=== PATIENT | female | born 1990 | race Caucasian/White ===

== ENCOUNTER 2019-02-16 10:34 | Emergency (ER) | payer OTHER ==
--- OUTSIDE RECORDS SUMMARY | 2019-02-16 10:41 | XMS REPORT | Continuity of Care Document ---
:1990 External Reference #:[id number] Author Name Orquidea Garcia M.D. Address [address] [facility] [place] [address] Care Team Providers Name Role Phone Orquidea Garcia M.D. 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 Onset: 2016 Social History Type Date Description Comments Sex Unknown Tobacco Use Start: Unknown Never Smoked Cigarettes ETOH Use Occasional 1-2 2-3x week Exercise Type/Frequency Exercises regularly cardio 3x week Allergies, Adverse Reactions, Alerts Description No Known Drug Allergies Medications Active Medications SIG Qnty Indications Ordering Provider Date Lorazepam take 1/2 - 1 14tabs F40.243 Orquidea Garcia, 02/05/2019 0.5mg Tablets tablet by mouth M.D. up to twice daily as needed for anxiety Sprintec 28 1 by mouth every Unknown day 0.25-35mg-mcg Tablets Medications Administered in Office Medication SIG Qnty Indications Ordering Provider Date Brief Emotional/Behav SEAN Sanchez 07/11/2017 Assessment W/ Scoring Doc Per Standard Inst Injection Immunizations CPT Code Status Date Vaccine Lot # [id number] Given 02/05/2019 Influenza Vac, Quadrivalent, Slit Virus, Im [id number] Given 03/02/2018 Influenza Vac, Quadrivalent, Slit Virus, Im Vital Signs Date Vital Result Comment 02/05/2019 1:28pm BP Systolic 120 mmHg BP Diastolic 60 mmHg Heart Rate 80 /min Body Temperature 98.6 F Respiratory Rate 12 /min Height 67 inches 5'7" Weight 196.00 lb BMI (Body Mass Index) 30.7 kg/m2 12/20/2017 5:53pm BP Systolic 118 mmHg BP Diastolic 60 mmHg Heart Rate 78 /min Body Temperature 98.4 F Respiratory Rate 16 /min Height 67 inches 5'7" Weight 205.12 lb BMI (Body Mass Index) 32.1 kg/m2 Results Description No Information Available Procedures Description No Information Available Medical Devices Description No Information Available Encounters Description No Information Available Assessments Date Code Description Provider 02/05/2019 Z23 Encounter for immunization Orquidea Garcia M.D. 02/05/2019 F41.9 Anxiety disorder, unspecified Orquidea Garcia M.D. 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 Plan of Treatment Future Appointment(s):04/22/2019 6:00 pm - Orquidea Garcia M.D. at [id number] - Orquidea Garcia M.D.Z23 Encounter for [id number] Anxiety disorder , unspecifiedComments:discussed controlled substance, No alcohol or driving while on these medications. Controlled substances can cause physiologic dependence, withdrawal symptoms, be addictive and/or habit forming. Not safe in syjzmfqjwP57.243 Fear of flyingNew Medication:Lorazepam 0.5 mg - take 1/2 - 1 tablet by mouth up to twice daily as needed for anxietyComments:Reviewed adverse side effects of medication. Advised to call the office if experiencing symptoms. Patient verbalized understanding. if using more often will need to consider restart fluoxetineAllComments:Medication Management Patient Understands medications she's taking? Yes No Are there Barriers to Adherence? Yes No Has the patient been asked about herbal supplements and therapies, and OTC meds? Yes No Functional Status Description No Information Available Mental Status Description No Information Available Referrals Description No Information Available
[2019-02-16 10:53] VITALS: BP 109/55
--- NOTE | 2019-02-16 10:55 | UC ---
General HPI - HPI Summary HPI Summary: Pt presents requesting STD testing. Pt is sexually active- uses condoms Pt states 2 partners last year - pt staes gets tested annually - [facility]. no sx. no vaginal discharge, itching, odor no concerning sx with partners pt requesting testing for gc/ch/trich/hiv/hep/syphillis pt declined testing for herpes no h/o, no lesions, no dysuria no personal hx of STD BCP meds reviewed - History of Current Complaint Chief Complaint: UCSTDScreening Stated Complaint: PERSONAL Time Seen by Provider: 02/16/19 10:49 Hx Obtained From: Patient Hx Last Menstrual Period: 01/17/19 Current Severity: None Pain Intensity: 0 - Allergy/Home Medications Allergies/Adverse Reactions: Allergies Allergy/AdvReac Type Severity Reaction Status Date / Time No Known Allergies Allergy Verified 02/16/19 10:47 Home Medications: Home Medications Norgestimate-Ethinyl Estradiol [Norg-Ee 0.18-0.215-0.25/0.025] 1 tab PO DAILY [History Confirmed 02/16/19] PMH/Surg Hx/FS Hx/Imm Hx Previously Healthy: Yes - Surgical History Surgical History: None - Family History Known Family History: Positive: Non-Contributory - Social History Occupation: Employed Full-time Lives: With Family Alcohol Use: Weekly Substance Use Type: None Smoking Status (MU): Never Smoked Tobacco Review of Systems All Other Systems Reviewed And Are Negative: Yes Gastrointestinal: Positive: Negative Genitourinary: Positive: Negative Physical Exam - Summary Physical Exam Summary: Vital Signs Reviewed: Yes A+Ox3, no distress Eyes: Conjunctiva Clear, LEORA. EOM intact and full ENT: Hearing grossly normal TM x 2 clear, mmoist, uvula midline, no exudate, no erythema Neck: Positive: Supple Respiratory: Positive: No respiratory distress, No accessory muscle use + CTA throughout no w/r Cardiovascular: RRR nl s1, s2 no m/r CBT <2 sec abd soft + BS nt/nd no guarding, no distension Musculoskeletal Exam: ANGEL x 4 without difficulty Strength Intact, ROM Intact Neurological: Positive: Alert, + sensation throughout Psychological: Positive: Normal Response To practice nurse Skin: Positive: no rash, no ecchymosis Triage Information Reviewed: Yes Vital Signs: Initial Vital Signs Temp 98.5 F 02/16/19 10:43 Pulse 93 02/16/19 10:43 Resp 16 02/16/19 10:43 BP 89/60 02/16/19 10:43 Pulse Ox 100 02/16/19 10:43 Course/Dx - Course Course Of Treatment: Pt requesting STD testing no sx no concerns re partners uses condoms revoewed with pt tests reviewed with pt lag in results from exposure - Diagnoses Provider Diagnosis: Routine screening for STI (sexually transmitted infection) Discharge ED - Sign-Out/Discharge Documenting (check all that apply): Patient Departure All imaging exams completed and their final reports reviewed: No Studies - Discharge Plan Condition: Stable Disposition: HOME Patient Education Materials: Sexually Transmitted Diseases (ED), Safe Sex (ED) Referrals: Orquidea Garcia MD [Primary Care Provider] - Additional Instructions: As discussed - your urine and blood has been send for the following sexually transmitted infections: Gonorrhea, Chlamydia, Trichamonas, HIV, Hepatitis, Syphillis. You declined testing for herpes simplex virus. As discussed, these results may take up to 1 week to come back. You will receive a call from a care support team member if there are concerning results. As discussed, HIV and Hepatitis may take several months to become positive in your blood work - you have not indicated any know exposures or symptoms [facility], or return with questions or concerns - Billing Disposition and Condition Condition: STABLE Disposition: Home
[2019-02-16 15:54] LABS: HIV 4th Generation Nonreactive (Nonreactive)
[2019-02-16 15:58] LABS: Hepatitis B Surface Ab Not Immune (Immune); Hepatitis C Antibody Negative (Negative)
--- NOTE | 2019-02-17 07:25 | UC ---
- Progress Note Progress Note: Follow up screening for STI's. Please notify that she is hep C andd HIV negative, but does not show immunity to hep B. 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 Course/Dx - Diagnoses Provider Diagnoses: Routine screening for STI (sexually transmitted infection) Discharge ED - Sign-Out/Discharge Documenting (check all that apply): Post-Discharge Follow Up All imaging exams completed and their final reports reviewed: No Studies - Discharge Plan Condition: Stable Disposition: HOME Patient Education Materials: Sexually Transmitted Diseases (ED), Safe Sex (ED) Referrals: Orquidea Garcia MD [Primary Care Provider] - Additional Instructions: As discussed - your urine and blood has been send for the following sexually transmitted infections: Gonorrhea, Chlamydia, Trichamonas, HIV, Hepatitis, Syphillis. You declined testing for herpes simplex virus. As discussed, these results may take up to 1 week to come back. You will receive a call from a care steam generating powerplant mechanic if there are concerning results. As discussed, HIV and Hepatitis may take several months to become positive in your blood work - you have not indicated any know exposures or symptoms [facility], or return with questions or concerns - Billing Disposition and Condition Condition: STABLE Disposition: Home
[2019-02-18 13:32] LABS: Chlamydia trachomatis NAA Negative (Negative); Neisseria gonorrhoeae (GC) NAA Negative (Negative)
--- NOTE | 2019-02-18 16:08 | UC ---
- Progress Note Progress Note: Urine for GC and chlamydia returned negative. Nursing staff will call and inform the patient. Course/Dx - Diagnoses Provider Diagnoses: Routine screening for STI (sexually transmitted infection) Discharge ED - Sign-Out/Discharge Documenting (check all that apply): Post-Discharge Follow Up All imaging exams completed and their final reports reviewed: No Studies - Discharge Plan Condition: Stable Disposition: HOME Patient Education Materials: Sexually Transmitted Diseases (ED), Safe Sex (ED) Referrals: Orquidea Garcia MD [Primary Care Provider] - Additional Instructions: As discussed - your urine and blood has been send for the following sexually transmitted infections: Gonorrhea, Chlamydia, Trichamonas, HIV, Hepatitis, Syphillis. You declined testing for herpes simplex virus. As discussed, these results may take up to 1 week to come back. You will receive a call from a care sports team marketing intern if there are concerning results. As discussed, HIV and Hepatitis may take several months to become positive in your blood work - you have not indicated any know exposures or symptoms [facility], or return with questions or concerns - Billing Disposition and Condition Condition: STABLE Disposition: Home - Attestation Statements Provider Attestation: I was available for consult. This patient was seen by the [facility]. The patient was not presented to, seen by, or examined by me. -Isac
--- NOTE | 2019-02-21 15:02 | UC ---
- Progress Note Progress Note: Please advise that syphilis screening is negative. Course/Dx - Diagnoses Provider Diagnoses: Routine screening for STI (sexually transmitted infection) Discharge ED - Sign-Out/Discharge Documenting (check all that apply): Post-Discharge Follow Up All imaging exams completed and their final reports reviewed: No Studies - Discharge Plan Condition: Stable Disposition: HOME Patient Education Materials: Sexually Transmitted Diseases (ED), Safe Sex (ED) Referrals: Orquidea Garcia MD [Primary Care Provider] - Additional Instructions: As discussed - your urine and blood has been send for the following sexually transmitted infections: Gonorrhea, Chlamydia, Trichamonas, HIV, Hepatitis, Syphillis. You declined testing for herpes simplex virus. As discussed, these results may take up to 1 week to come back. You will receive a call from a care seafood team member if there are concerning results. As discussed, HIV and Hepatitis may take several months to become positive in your blood work - you have not indicated any know exposures or symptoms [facility], or return with questions or concerns - Billing Disposition and Condition Condition: STABLE Disposition: Home
== END 2019-02-16 11:45 | disposition home or self-care (01) ==
LOC: UCEAST 10:34
DX: Z11.3 Encounter for screening for infections with a predominantly sexual mode of transmission (principal)
CPT/HCPCS: 36415; 86706; 86780; 86803; 87389; 87491; 87591; 87661; 99211; G0463